=== PATIENT | female | born 1995 | race Caucasian/White ===

== ENCOUNTER 2017-12-04 20:24 | Emergency (ER) | payer BC ==
[~2017-12-04] VITALS: Ht 160 cm; Wt 86.2 kg
[2017-12-04 21:02] LABS: Hematocrit 37.9 % (33.0-51.0); Hemoglobin 12.1 g/dL (11.5-16.0); Mean Corpuscular HGB 29.5 pg (26.0-34.0); Mean Corpuscular HGB Conc 31.9 g/dL (31.5-36.5); Mean Corpuscular Volume 92 fL (80-100); Mean Platelet Volume 10.6 fL (9.1-12.4); Platelet Count 319 K/mm3 (150-400); RDW Coefficient Variation 12.8 % (11.7-14.2); RDW Standard Deviation 43.7 fL (35.1-46.3); White Blood Cell Count 9.18 K/mm3 (4.00-11.30)
[2017-12-04 21:16] LABS: Alanine Aminotransfer (ALT/SGP 12 U/L (12-78); Albumin, Blood 3.6 g/dL (3.4-5.0); Alk Phos 78 U/L (50-136); Anion Gap 7 mmol/L (6-16); Aspartate Aminotrans (AST/SGOT 14 U/L (12-37); Bilirubin, Total 0.2 mg/dL (0.1-1.0); Blood Urea Nitrogen 7 mg/dL (8-24); Bun/Creatinine Ratio 11.6 (12.0-20.0); CO2, Blood 25 mmol/L (21-32); Calcium, Blood 8.4 mg/dL (8.5-10.1); Chloride, Blood 111 mmol/L (98-108); Ethanol (Alcohol), Blood, Med 16 mg/dL; Globulin, Blood 3.5 g/dL (2.2-4.0); Glomerular Filtration Rate >60 (60-); Glucose, Blood 99 mg/dL (70-99); Magnesium, Blood 1.9 mg/dL (1.6-2.4); Potassium, Blood 3.4 mmol/L (3.5-5.5); Sodium, Blood 143 mmol/L (136-145); Total Protein, Blood 7.1 g/dL (6.4-8.2)
== END 2017-12-04 22:38 | disposition home or self-care (01) ==
LOC: ER 20:24
PROVIDERS: Emergency Medicine
DX: R55 Syncope and collapse (principal)
CPT/HCPCS: 36415; 70450; 72125; 80053; 81000; 81025; 82947; 83735; 85027; 93005; 93010; 96360; 99284-25; G0480; J7030

== ENCOUNTER → 2018-07-23 | Outpatient (CLI) | payer BC, OTHER | END | disposition home or self-care (01) | LOC: LAB 17:07 → LAB SHORT 17:07 | DX: Z51.81 Encounter for therapeutic drug level monitoring (principal); F11.20 Opioid dependence, uncomplicated; Z79.899 Other long term (current) drug therapy | CPT/HCPCS: G0480 ==

== ENCOUNTER 2022-08-05 15:41 | Emergency (ER) | payer OTHER ==
[~2022-08-05] VITALS: Ht 160 cm; Wt 95.2 kg
== END 2022-08-05 19:08 | disposition home or self-care (01) ==
LOC: ER 15:41
DX: H20.9 Unspecified iridocyclitis (principal); H57.11 Ocular pain, right eye; F17.200 Nicotine dependence, unspecified, uncomplicated; Z88.0 Allergy status to penicillin
CPT/HCPCS: 99283; A9270

== ENCOUNTER 2023-09-12 13:07 | Emergency (ER) | payer OTHER ==
[~2023-09-12] VITALS: Ht 160 cm; Wt 106.6 kg
[2023-09-12 13:49] LABS: BASOPHILS ABSOLUTE AUTO 0.02 K/mm3 (0.00-0.23); BASOPHILS PERCENT AUTO 0 % (0-2); EOSINOPHILS ABSOLUTE AUTO 0.19 K/mm3 (0.00-0.68); EOSINOPHILS PERCENT AUTO 2 % (0-6); Hemoglobin 11.8 g/dL (11.5-16.0); IMMATURE GRAN ABSOLUTE AUTO 0.04 K/mm3 (0.00-0.10); IMMATURE GRAN PERCENT AUTO 0 % (0-1); LYMPHOCYTES ABSOLUTE AUTO 2.68 K/mm3 (0.84-5.20); LYMPHOCYTES PERCENT AUTO 24 % (21-46); MONOCYTES ABSOLUTE AUTO 0.41 K/mm3 (0.16-1.47); MONOCYTES PERCENT AUTO 4 % (4-13); Mean Corpuscular HGB 29.2 pg (26.0-34.0); Mean Corpuscular HGB Conc 32.8 g/dL (31.5-36.5); Mean Corpuscular Volume 89 fL (80-100); Mean Platelet Volume 10.1 fL (9.1-12.4); NEUTROPHILS ABSOLUTE AUTO 8.02 K/mm3 (1.96-9.15); NEUTROPHILS PERCENT AUTO 71 % (41-73); Platelet Count 300 K/mm3 (150-400); RDW Coefficient Variation 12.1 % (11.7-14.2); RDW Standard Deviation 39.6 fL (35.1-46.3); Red Blood Cell Count 4.04 M/mm3 (3.80-5.20); White Blood Cell Count 11.36 K/mm3 (4.00-11.30)
[2023-09-12 14:21] LABS: Source, Urine Clean Catch
[2023-09-12 14:28] LABS: Appearance, Urine Clear (Clear); Bilirubin, Urine Neg (Neg); Blood, Urine Neg (Neg); Color, Urine Yellow (P-Yellow); Glucose Qualitative, Urine Neg (Neg); Ketones, Urine Neg (Neg); Leukocyte Esterase, Urine Neg (Neg); Nitrite, Urine Neg (Neg); Protein, Urine Neg (Neg); Specific Gravity, Urine 1.015 (1.003-1.022); Urobilinogen, Urine NORM (Normal)
[2023-09-12 14:33] LABS: Albumin, Blood 2.8 g/dL (3.4-5.0); Albumin/Globulin Ratio 0.7 (0.8-1.8); Bilirubin, Total 0.3 mg/dL (0.1-1.0); Bun/Creatinine Ratio 15.2 (12.0-20.0); Creatinine, Blood 0.53 mg/dL (0.40-1.00); Potassium, Blood 4.1 mmol/L (3.5-5.5); Total Protein, Blood 6.8 g/dL (6.4-8.2)
[2023-09-12 15:00] VITALS: BP 144/86
== END 2023-09-12 15:23 | disposition home or self-care (01) ==
LOC: ER 13:07
PROVIDERS: Nurse Practitioner
DX: O44.12 Complete placenta previa with hemorrhage, second trimester (principal); O20.9 Hemorrhage in early pregnancy, unspecified; O99.332 Smoking (tobacco) complicating pregnancy, second trimester; F17.290 Nicotine dependence, other tobacco product, uncomplicated; Z88.0 Allergy status to penicillin; Z3A.16 16 weeks gestation of pregnancy
CPT/HCPCS: 76815; 80053; 81003; 84702; 85025; 99284-25

== ENCOUNTER → 2023-09-14 | Outpatient (CLI) | payer OTHER ==
[2023-09-14 15:14] LABS: Bacterial Vaginosis PCR Positive (NEGATIVE); Candida Group, PCR NOT DETECTED (NOT DETECT); Candida glabrata-krusei, PCR NOT DETECTED (NOT DETECT)
== END ==
LOC: LAB SHORT 10:07 → LAB 10:07
PROVIDERS: Advanced Practice Midwife
DX: O26.859 Spotting complicating pregnancy, unspecified trimester (principal); Z3A.00 Weeks of gestation of pregnancy not specified
CPT/HCPCS: 87481; 87661; 87801

== ENCOUNTER → 2024-01-21 | Outpatient (CLI) | payer OTHER ==
[2024-01-21 15:31] LABS: Protein, Urine Quantitative 8.4 mg/dL (0.0-11.9)
== END | disposition home or self-care (01) ==
LOC: LAB SHORT 11:16 → LAB 11:16
PROVIDERS: Advanced Practice Midwife
DX: O14.93 Unspecified pre-eclampsia, third trimester (principal)
CPT/HCPCS: 84156

== ENCOUNTER → 2024-02-02 | Outpatient (CLI) | payer OTHER | END | disposition home or self-care (01) | LOC: LAB 10:15 → LAB SHORT 10:15 | DX: O09.92 Supervision of high risk pregnancy, unspecified, second trimester (principal) | CPT/HCPCS: 87081; 87150 ==

== ENCOUNTER 2024-02-25 17:00 | Inpatient (IN) | payer OTHER ==
[2024-02-25] VITALS (7 sets, daily range): BP systolic 142–156; BP diastolic 72–92
[~2024-02-25] VITALS: Ht 160 cm; Wt 127.0 kg
[2024-02-25] MEDS ORDERED: OXYTOCIN/RINGER'S LACTATE 500 ML IV PRN (17:30)
[2024-02-25] MEDS ORDERED: Misoprostol 200 MCG Tab BC PRN (17:30)
[2024-02-25] MEDS ORDERED: Oxytocin 10 Unit / ML Vial IM PRN (17:30)
[2024-02-25] MEDS ORDERED: Lactated Ringer's 1,000 ML IV SCH (17:30)
[2024-02-25] MEDS ORDERED: Carboprost Tromethamine 250 MCG/ML 1ML Amp IM PRN (17:30)
[2024-02-25] MEDS ORDERED: Labetalol HCL 5 MG/ML 4ML Injection (Single Dose) IV ONE (17:30)
[2024-02-25] MEDS ORDERED: Misoprostol 200 MCG Tab PR PRN (17:30)
[2024-02-25] MEDS ORDERED: Ondansetron HCl 2 MG / ML 2ML Vial IV PRN ×2 (17:30→18:40)
[2024-02-25] MEDS ORDERED: Lactated Ringer's 1,000 ML IV PRN (17:30)
[2024-02-25] MEDS ORDERED: Tranexamic Acid 100 ML IV SCH (17:30)
[2024-02-25] MEDS ORDERED: Calcium Carbonate 500 MG Tab Chew PO PRN ×2 (17:30→18:40)
[2024-02-25] MEDS ORDERED: Methylergonovine Maleate 0.2MG / ML 1ML Amp IM PRN (17:30)
[2024-02-25] MEDS ORDERED: Acetaminophen 500 MG Tab PO PRN (17:30)
[2024-02-25] MEDS ORDERED: Calcium Gluconate 0.465 mEq/ml 10 ml Vial IV PRN (17:30)
[2024-02-25 18:08] LABS: BASOPHILS ABSOLUTE AUTO 0.06 K/mm3 (0.00-0.23); BASOPHILS PERCENT AUTO 1 % (0-2); EOSINOPHILS ABSOLUTE AUTO 0.18 K/mm3 (0.00-0.68); EOSINOPHILS PERCENT AUTO 1 % (0-6); Hematocrit 34.3 % (33.0-51.0); Hemoglobin 11.4 g/dL (11.5-16.0); IMMATURE GRAN ABSOLUTE AUTO 0.05 K/mm3 (0.00-0.10); IMMATURE GRAN PERCENT AUTO 0 % (0-1); LYMPHOCYTES ABSOLUTE AUTO 2.69 K/mm3 (0.84-5.20); LYMPHOCYTES PERCENT AUTO 21 % (21-46); MONOCYTES ABSOLUTE AUTO 0.88 K/mm3 (0.16-1.47); MONOCYTES PERCENT AUTO 7 % (4-13); Mean Corpuscular HGB 28.9 pg (26.0-34.0); Mean Corpuscular HGB Conc 33.2 g/dL (31.5-36.5); Mean Corpuscular Volume 87 fL (80-100); Mean Platelet Volume 10.1 fL (9.1-12.4); NEUTROPHILS ABSOLUTE AUTO 8.96 K/mm3 (1.96-9.15); NEUTROPHILS PERCENT AUTO 70 % (41-73); Platelet Count 317 K/mm3 (150-400); RDW Coefficient Variation 13.9 % (11.7-14.2); RDW Standard Deviation 44.3 fL (35.1-46.3); Red Blood Cell Count 3.94 M/mm3 (3.80-5.20); White Blood Cell Count 12.82 K/mm3 (4.00-11.30)
[2024-02-25] MEDS ORDERED: LOW DOSE ASPIRI81 MG PO (18:14)
[2024-02-25] MEDS ORDERED: PRENATAL TABLE1 EAC2 PO (18:15)
[2024-02-25] MEDS ORDERED: Allergy Relief10 M1 PO (18:16)
[2024-02-25 18:27] LABS: Albumin, Blood 2.3 g/dL (3.4-5.0); Albumin/Globulin Ratio 0.5 (0.8-1.8); Bilirubin, Total 0.3 mg/dL (0.1-1.0); Calcium, Blood 8.7 mg/dL (8.5-10.1); Creatinine, Blood 0.5 mg/dL (0.40-1.00); Globulin, Blood 4.3 g/dL (2.2-4.0); Potassium, Blood 3.8 mmol/L (3.5-5.5); Total Protein, Blood 6.6 g/dL (6.4-8.2)
[2024-02-25] MEDS ORDERED: Acetaminophen 325 MG TABLET PO PRN (18:40)
[2024-02-25] MEDS ORDERED: FentaNYL Citrate 50 MCG/ML 2 ML Injection IV PRN (18:40)
[2024-02-25] MEDS ORDERED: Zolpidem Tartrate 10 MG Tab PO PRN (19:25)
[2024-02-25] MEDS ORDERED: Labetalol HCL 100 MG TAB PO SCH (21:00)
[2024-02-26] VITALS (15 sets, daily range): BP systolic 115–151; BP diastolic 58–92
[2024-02-26] MEDS ORDERED: OXYTOCIN/RINGER'S LACTATE 500 ML IV SCH (14:30)
[2024-02-26] MEDS ORDERED: Misoprostol 25 MCG Tab PO SCH (16:00)
[2024-02-27] VITALS (19 sets, daily range): BP systolic 113–165; BP diastolic 62–84
[2024-02-27] MEDS ORDERED: Terbutaline Sulfate 1MG / ML 1 ML Amp ONE (00:39)
[2024-02-27] MEDS ORDERED: Terbutaline Sulfate 1MG / ML 1 ML Amp SC ONE (00:45)
[2024-02-27] MEDS ORDERED: Azithromycin 500 MG in NS 250 ML IV SCH ×2 (00:55→01:15)
[2024-02-27] MEDS ORDERED: FentaNYL Citrate 50 MCG/ML 2 ML Injection ONE (00:55)
[2024-02-27] MEDS ORDERED: Lactated Ringer's 1,000 ML IV SCH (00:55)
[2024-02-27] MEDS ORDERED: Citric Acid/Sodium Citrate 30 ML BTL PO ONE (01:10)
[2024-02-27] MEDS ORDERED: CeFAZolin Sodium 3,000 MG in NS 100 ML IV SCH (01:12)
[2024-02-27 02:20] LABS: PO2 Cord - Arterial < 14.0 mmHg (16-20); pH Cord - Arterial 7.13 (7.28-7.35)
[2024-02-27 02:21] LABS: PCO2 Cord - Venous 56.9 mmHg (40-50); PO2 Cord - Venous < 14.0 mmHg (28-32); pH Umbilical Cord - Venous 7.19 (7.26-7.35)
--- NOTE | 2024-02-27 02:28 | NUR ---
02/27/24 0228 Laura Cruz CORD SENT WITH RT FOR CORD GASES. CORD BLOOD GIVEN TO L&D RN.
[2024-02-27] MEDS ORDERED: Phenylephrine HCl 100 MCG/ML-NS 10MLSYR (1MG/10ML) ONE (02:45)
[2024-02-27] MEDS ORDERED: Oxytocin 10 Unit / ML Vial ONE (02:45)
[2024-02-27] MEDS ORDERED: Ketorolac Tromethamine 30mg Vial ONE (02:45)
[2024-02-27] MEDS ORDERED: CeFAZolin Sodium 1000 mg Vial ONE (02:45)
[2024-02-27] MEDS ORDERED: Polyethylene Glycol 3350 17 gm PO PRN (02:55)
[2024-02-27] MEDS ORDERED: Magnesium Hydroxide Conc 10 ML UDC PO PRN (02:55)
[2024-02-27] MEDS ORDERED: Measles/Mumps/Rubella Vaccine 0.5 ML Vial SC ONE (02:55)
[2024-02-27] MEDS ORDERED: Oxytocin 10 Unit / ML Vial IM ONE (02:55)
[2024-02-27] MEDS ORDERED: Metoclopramide HCl 10 MG Tab PO PRN (02:55)
[2024-02-27] MEDS ORDERED: OXYTOCIN/RINGER'S LACTATE 16.66666666 ML IV SCH (02:55)
[2024-02-27] MEDS ORDERED: Ondansetron HCl 2 MG / ML 2ML Vial IV PRN (03:00)
[2024-02-27] MEDS ORDERED: Lanolin Cream TOP PRN (03:00)
[2024-02-27] MEDS ORDERED: Diphth,Pertuss(Acell),Tet Vac 0.5 ML VIAL IM ONE (03:00)
[2024-02-27] MEDS ORDERED: Carboprost Tromethamine 250 MCG/ML 1ML Amp IM PRN (03:00)
[2024-02-27] MEDS ORDERED: Ketorolac Tromethamine 30mg Vial IV SCH (03:00)
[2024-02-27] MEDS ORDERED: Promethazine HCl 25 MG Tab PO PRN (03:05)
[2024-02-27] MEDS ORDERED: Misoprostol 200 MCG Tab PR PRN (03:05)
[2024-02-27] MEDS ORDERED: Rho(D) Immune Globulin 300 MCG / SYR IM ONE ×2 (03:05→13:00)
[2024-02-27] MEDS ORDERED: OxyCODONE HCL 5 MG TAB PO PRN ×2 (03:05)
[2024-02-27] MEDS ORDERED: FLU VACC TS2024-25(6MOS UP)/PF 45 MCG/0.5 ML SYRINGE IM ONE (03:05)
[2024-02-27] MEDS ORDERED: Simethicone 80 MG Chew PO PRN (03:10)
[2024-02-27] MEDS ORDERED: Misoprostol 200 MCG Tab XX ONE (03:15)
[2024-02-27] MEDS ORDERED: Ketorolac Tromethamine 30mg Vial IV PRN (04:20)
[2024-02-27] MEDS ORDERED: Acetaminophen 500 MG Tab PO PRN (04:20)
[2024-02-27] MEDS ORDERED: Ibuprofen 400 MG Tab PO PRN (04:20)
[2024-02-27 06:38] LABS: BASOPHILS ABSOLUTE AUTO 0.04 K/mm3 (0.00-0.23); BASOPHILS PERCENT AUTO 0 % (0-2); EOSINOPHILS ABSOLUTE AUTO 0.01 K/mm3 (0.00-0.68); EOSINOPHILS PERCENT AUTO 0 % (0-6); Hematocrit 33.4 % (33.0-51.0); Hemoglobin 11.2 g/dL (11.5-16.0); IMMATURE GRAN ABSOLUTE AUTO 0.13 K/mm3 (0.00-0.10); IMMATURE GRAN PERCENT AUTO 1 % (0-1); LYMPHOCYTES ABSOLUTE AUTO 1.38 K/mm3 (0.84-5.20); LYMPHOCYTES PERCENT AUTO 8 % (21-46); MONOCYTES ABSOLUTE AUTO 0.36 K/mm3 (0.16-1.47); MONOCYTES PERCENT AUTO 2 % (4-13); Mean Corpuscular HGB 29.3 pg (26.0-34.0); Mean Corpuscular HGB Conc 33.5 g/dL (31.5-36.5); Mean Corpuscular Volume 87 fL (80-100); Mean Platelet Volume 10.5 fL (9.1-12.4); NEUTROPHILS ABSOLUTE AUTO 14.85 K/mm3 (1.96-9.15); NEUTROPHILS PERCENT AUTO 89 % (41-73); Platelet Count 303 K/mm3 (150-400); RDW Coefficient Variation 14.3 % (11.7-14.2); RDW Standard Deviation 45.6 fL (35.1-46.3); Red Blood Cell Count 3.82 M/mm3 (3.80-5.20); White Blood Cell Count 16.77 K/mm3 (4.00-11.30)
[2024-02-27] MEDS ORDERED: Ibuprofen 400 MG Tab PO SCH (08:00)
[2024-02-27] MEDS ORDERED: Acetaminophen 500 MG Tab PO SCH (08:00)
[2024-02-27] MEDS ORDERED: Prenatal Vit/FE Fumarate/FA 1 Tab PO SCH (09:00)
[2024-02-28 00:27] VITALS: BP 122/58
[2024-02-28 04:32] VITALS: BP 125/65
[2024-02-28 07:54] VITALS: BP 131/72
[2024-02-28 12:42] VITALS: BP 120/66
[2024-02-28] MEDS ORDERED: LABE200 PO (14:34)
[2024-02-28] MEDS ORDERED: Percocet 5-3251 EACH PO (14:35)
== END 2024-02-28 16:50 | disposition home or self-care (01) | DRG 788 ==
LOC: OBS 17:00 → BC 17:01 → OBS 17:07 → BC 17:11
PROVIDERS: Family Medicine; Obstetrics & Gynecology; ADMIT Advanced Practice Midwife
PROC: 0U7C0ZZ Dilation of Cervix, Open Approach (ICD-10-PCS; 2024-02-27)
PROC: 4A033R1 Measurement of Arterial Saturation, Peripheral, Percutaneous Approach (ICD-10-PCS; 2024-02-27)
PROC: 10D00Z1 Extraction of Products of Conception, Low, Open Approach (ICD-10-PCS; principal; 2024-02-27 01:00)
DX: O14.94 Unspecified pre-eclampsia, complicating childbirth (principal); Z3A.39 39 weeks gestation of pregnancy; Z37.0 Single live birth; O99.214 Obesity complicating childbirth; O99.344 Other mental disorders complicating childbirth; O76 Abnormality in fetal heart rate and rhythm complicating labor and delivery; F41.8 Other specified anxiety disorders; O99.324 Drug use complicating childbirth; F11.11 Opioid abuse, in remission; Z67.91 Unspecified blood type, Rh negative; Z87.891 Personal history of nicotine dependence; Z98.890 Other specified postprocedural states; Z88.0 Allergy status to penicillin; Z79.82 Long term (current) use of aspirin; Z79.899 Other long term (current) drug therapy
CPT/HCPCS: 36415; 59200; 80053; 82803; 85025; 85460; 86850; 86900; 86901; 86923; A9270; C1751; J0456; J0690; J1885; J2371; J2590; J2791; J3010; J3105; J7050; J7120

== ENCOUNTER → 2025-03-09 | Outpatient (CLI) | payer OTHER ==
[~2025-03-09] MED LIST: Allergy Relief10 M1 PO; LABE200 PO; LOW DOSE ASPIRI81 MG PO; PRENATAL TABLE1 EAC2 PO; Percocet 5-3251 EACH PO
== END ==
LOC: LAB SHORT 17:55 → LAB 17:55
PROVIDERS: Nurse Practitioner Family
DX: Z12.4 Encounter for screening for malignant neoplasm of cervix (principal)
CPT/HCPCS: 87624; G0145